=== PATIENT | female | born 1970 | race Caucasian/White ===

== ENCOUNTER 2022-01-31 10:51 | Day surgery (SDC) | payer OTHER ==
[~2022-01-31] VITALS: Ht 170.2 cm; Wt 143.1 kg
[~2022-01-31 10:51] MED LIST: ATOR40TA28 PO; CHL25 PO; CHOL25TA4 PO; LEVO200 PO; SODIUM CHLORIDE 0.9% 1,000 ML ONE
[2022-01-31] MEDS ORDERED: SODIUM CHLORIDE 0.9% 1,000 ML IV ONE (11:00)
[2022-01-31 11:20] LABS: COVID AG,FIA SOURCE NASOPHARYNGEAL
[2022-01-31] MEDS ORDERED: LIDOCAINE/PF 2% 5 ML VIAL IM ONE (12:00)
[2022-01-31] MEDS ORDERED: PROPOFOL 1% 20 ML VIAL IVP ONE (12:00)
[2022-01-31] MEDS ORDERED: OMEP40CA21 PO (14:10)
== END 2022-01-31 15:30 | disposition home or self-care (01) ==
LOC: SURGERY 10:51
PROVIDERS: ATTEND Internal Medicine Gastroenterology
DX: K62.5 Hemorrhage of anus and rectum (principal); K64.8 Other hemorrhoids; K20.90 Esophagitis, unspecified without bleeding; K44.9 Diaphragmatic hernia without obstruction or gangrene; Z20.822 Contact with and (suspected) exposure to COVID-19; Z90.49 Acquired absence of other specified parts of digestive tract; Z98.890 Other specified postprocedural states; Z87.01 Personal history of pneumonia (recurrent)
CPT/HCPCS: 43239; 45378; 87426; J2704; J3490; J7030; C9803; 88305

== ENCOUNTER → 2022-04-03 | Day surgery (SDC) | payer OTHER ==
[~2022-04-03] VITALS: Ht 170.2 cm; Wt 142.9 kg
[~2022-04-03] MED LIST changes: +LIDOCAINE/PF 2% 5 ML VIAL CAUDAL ONE; +OMEP40CA21 PO; +PROPOFOL 1% 20 ML VIAL IVP ONE; +SODIUM CHLORIDE 0.9% 1,000 ML IV ONE
[2022-04-03 11:44] LABS: COVID AG,FIA SOURCE NASOPHARYNGEAL
== END | disposition home or self-care (01) ==
LOC: SURGERY 11:15
PROVIDERS: ATTEND Student in an Organized Health Care Education/Training Program
DX: K21.00 Gastro-esophageal reflux disease with esophagitis, without bleeding (principal); K44.9 Diaphragmatic hernia without obstruction or gangrene; I10 Essential (primary) hypertension; Z90.49 Acquired absence of other specified parts of digestive tract; Z98.890 Other specified postprocedural states; Z87.01 Personal history of pneumonia (recurrent); Z20.822 Contact with and (suspected) exposure to COVID-19
CPT/HCPCS: 43239; 88305; 88312; 88313; 87426; C1769; J2704; J3490; J7030; C9803

== ENCOUNTER → 2022-06-05 | Day surgery (SDC) | payer OTHER ==
[~2022-06-05] VITALS: Ht 170.2 cm; Wt 145.4 kg
[~2022-06-05] MED LIST changes: -LIDOCAINE/PF 2% 5 ML VIAL CAUDAL ONE; -SODIUM CHLORIDE 0.9% 1,000 ML ONE
[2022-06-05 07:45] LABS: COVID AG,FIA SOURCE NASOPHARYNGEAL
== END | disposition home or self-care (01) ==
LOC: SURGERY 07:13
PROVIDERS: ATTEND Student in an Organized Health Care Education/Training Program
DX: K21.9 Gastro-esophageal reflux disease without esophagitis (principal); R13.10 Dysphagia, unspecified; K44.9 Diaphragmatic hernia without obstruction or gangrene; Z20.822 Contact with and (suspected) exposure to COVID-19
CPT/HCPCS: 43239; 88305; 88312; 88313; 87426; C1769; J2704; C9803